=== PATIENT | female | born 1975 | race Asian ===

== ENCOUNTER 2023-02-17 17:32 | Inpatient (IN) | payer OTHER ==
[~2023-02-17] VITALS: Ht 167.6 cm; Wt 72.7 kg
[2023-02-17] MEDS ORDERED: LEVO100 PO (17:59)
[2023-02-17 21:06] LABS: BASOPHILS % (AUTO) 0.1 % (0.0-2.0); EOSINOPHILS % (AUTO) 0.2 % (1.0-6.0); HEMATOCRIT 43.1 % (36-46); HEMOGLOBIN 14.6 g/dL (12.0-16.0); LYMPHOCYTES # (AUTO) 0.8 K/uL (1.0-4.8); LYMPHOCYTES % (AUTO) 11.1 % (22.0-44.0); MEAN CORPUSCULAR HEMOGLOBIN 32.8 pg (26.0-34.0); MEAN CORPUSCULAR HGB CONC 33.9 G/dL (31.0-37.0); MEAN CORPUSCULAR VOLUME 97 fL (80-100); MONOCYTES # (AUTO) 0.4 K/uL (0.1-1.0); MONOCYTES % (AUTO) 4.6 % (2.0-9.0); NEUTROPHILS # (AUTO) 6.4 K/uL (1.8-7.7); PLATELET COUNT (AUTO) 205 K/uL (150-450); RED BLOOD CELL COUNT(AUTO) 4.45 MIL/uL (4.00-5.20); RED CELL DISTRIBUTION WIDTH 12.4 % (11.5-14.5)
[2023-02-17 21:16] LABS: APPEARANCE,URINE CLEAR (CLEAR); BILIRUBIN,URINE NEGATIVE (NEGATIVE); GLUCOSE, URINE (UA) NEGATIVE (NEGATIVE); KETONES,URINE 80-100 mg/dL (NEGATIVE); LEUKOCYTE ESTERASE ,URINE TRACE (NEGATIVE); NITRATE,URINE NEGATIVE (NEGATIVE); OCCULT BLOOD,URINE MODERATE (NEGATIVE); PH,URINE 5.5 (5.0-8.0); PROTEIN,URINE TRACE mg/dL (NEGATIVE); SPECIFIC GRAVITIY, URINE 1.023 (1.003-1.030); UROBILINOGEN,URINE <=1.0 mg/dL (<=1.0)
[2023-02-17 21:18] LABS: ANION GAP 11 mmol/L (8-16); CALCIUM, TOTAL 9.2 mg/dL (8.8-10.5); CARBON DIOXIDE 29 mmol/L (22-29); CHLORIDE 97 mmol/L (98-107); CREATININE 0.78 mg/dL (0.60-1.30); GLOMERULAR FILTR. RATE CALC > 60 mL/min (>60); GLUCOSE,RANDOM 110 mg/dL (70-110); POTASSIUM 3.6 mmol/L (3.5-5.1); SODIUM SERUM 137 mmol/L (136-145); UREA NITROGEN, BLOOD 7 mg/dL (7-18)
[2023-02-17 21:25] LABS: ALANINE AMINOTRANSFERASE 40 U/L (12-78); ALKALINE PHOSPHATASE 100 U/L (46-116); ASPARTATE AMINOTRANSFERASE 21 U/L (15-37); LIPASE 79 U/L (73-393); TOTAL PROTEIN, SERUM 8.1 g/dL (6.4-8.2)
[2023-02-17 21:29] LABS: BACTERIA,URINE None Seen /HPF (None Seen); RBC,URINE 0-2 /HPF (0-2); SQUAMOUS EPITHELIAL CELL,UR None Seen /LPF (None Seen); WBC,URINE 0-2 /HPF (0-5)
[2023-02-18] MEDS ORDERED: PHENOBARB/HYOSCY/ATROPINE/SCOP 5 ML UDCUP ELIXIR PO ONE
[2023-02-18] MEDS ORDERED: PIPERACILLIN/TAZO 3.375 GM/D5W 50 ML IV ONE (02:15)
[2023-02-18] MEDS ORDERED: MORPHINE SULFATE 2 MG/ML SYRINGE IVP PRN (03:15)
[2023-02-18] MEDS ORDERED: MORPHINE SULFATE 4 MG/ML SYRINGE IVP PRN ×2 (03:15→13:15)
[2023-02-18] MEDS ORDERED: ACETAMINOPHEN 325 MG TABLET PO PRN (03:15)
[2023-02-18] MEDS ORDERED: ONDANSETRON HCL 4 MG/2 ML VIAL IVP PRN (03:15)
[2023-02-18] MEDS: RINGERS SOLUTION,LACTATED 1,000 ML IV SCH ×2 (04:52→14:46)
[2023-02-18 06:08] LABS: PROTHROMBIN TIME 10.8 SEC (9.4-11.6)
[2023-02-18] MEDS: DOCUSATE SODIUM 100 MG CAPSULE PO SCH ×2 (09:29→20:11)
[2023-02-18] MEDS: PIPERACILLIN/TAZO 3.375 GM/D5W 50 ML IV SCH ×3 (09:30→21:41)
[2023-02-18] MEDS ORDERED: BUPIVACAINE 0.25%/EPI 1:200,000/PF 10 ML VIAL ONE ×2 (11:32)
[2023-02-18] MEDS ORDERED: SODIUM CL IRRIG SOLN BAG 3,000 ML IRRIG ONE (11:32)
[2023-02-18] MEDS ORDERED: RINGERS SOLUTION,LACTATED 1,000 ML IV ONE (11:43)
[2023-02-18] MEDS ORDERED: SUGAMMADEX SODIUM 200 MG/2 ML VIAL IVP ONE (12:22)
[2023-02-18] MEDS ORDERED: ACETAMINOPHEN 1000 MG/ISO-OSM 100 ML IV ONE (12:22)
[2023-02-18] MEDS ORDERED: MetroNIDAZOLE 500 MG/NACL 100 ML IV ONE (12:22)
[2023-02-18] MEDS ORDERED: FentaNYL CITRATE PF 100 MCG/2 ML VIAL IVP PRN (12:30)
[2023-02-18] MEDS ORDERED: HYDROmorphone HCL 2 MG/ML SYRINGE IVP PRN (12:30)
[2023-02-18] MEDS ORDERED: HYDROmorphone HCL 2 MG/ML SYRINGE IM PRN (13:15)
[2023-02-18] MEDS: FAMOTIDINE 20 MG TABLET PO SCH ×2 (13:15→20:11)
[2023-02-18] MEDS ORDERED: HYDROCODONE/ACETAMINOPHEN 5-325 MG TABLET PO PRN (13:15)
[2023-02-18 14:43] VITALS: BP 118/76
[2023-02-18] MEDS: IBUPROFEN 200 MG TABLET PO SCH ×2 (18:33→20:20)
[2023-02-18 19:53] VITALS: BP 117/69
[2023-02-18] MEDS: OXYGEN THERAPY IH SCH (20:21)
[2023-02-19] MEDS: RINGERS SOLUTION,LACTATED 1,000 ML IV SCH ×3 (03:31→23:07)
[2023-02-19] MEDS: PIPERACILLIN/TAZO 3.375 GM/D5W 50 ML IV SCH ×4 (03:31→20:33)
[2023-02-19 04:38] VITALS: BP 119/76
[2023-02-19] MEDS ORDERED: FentaNYL CITRATE PF 100 MCG/2 ML VIAL IVP ONE (06:02)
[2023-02-19] MEDS ORDERED: MIDAZOLAM HCL 2 MG/2 ML VIAL IVP ONE (06:02)
[2023-02-19] MEDS ORDERED: PROPOFOL 1% 20 ML VIAL IVP ONE (06:02)
[2023-02-19] MEDS ORDERED: ROCURONIUM BROMIDE 10 MG/ML 5 ML VIAL IVP ONE (06:02)
[2023-02-19] MEDS ORDERED: LIDOCAINE/PF 2% 5 ML VIAL IM ONE (06:02)
[2023-02-19] MEDS ORDERED: DEXAMETHASONE SOD PHOS 4 MG/ML VIAL IVP ONE (06:02)
[2023-02-19] MEDS ORDERED: ONDANSETRON HCL 4 MG/2 ML VIAL IVP ONE (06:02)
[2023-02-19 07:36] LABS: BASOPHILS % (AUTO) 0.2 % (0.0-2.0); EOSINOPHILS % (AUTO) 0 % (1.0-6.0); HEMATOCRIT 36.9 % (36-46); HEMOGLOBIN 12.7 g/dL (12.0-16.0); LYMPHOCYTES # (AUTO) 0.5 K/uL (1.0-4.8); LYMPHOCYTES % (AUTO) 7.6 % (22.0-44.0); MEAN CORPUSCULAR HEMOGLOBIN 33.3 pg (26.0-34.0); MEAN CORPUSCULAR HGB CONC 34.4 G/dL (31.0-37.0); MEAN CORPUSCULAR VOLUME 97 fL (80-100); MONOCYTES # (AUTO) 0.3 K/uL (0.1-1.0); MONOCYTES % (AUTO) 5.1 % (2.0-9.0); NEUTROPHILS # (AUTO) 5.5 K/uL (1.8-7.7); PLATELET COUNT (AUTO) 140 K/uL (150-450); RED CELL DISTRIBUTION WIDTH 12.6 % (11.5-14.5)
[2023-02-19 07:43] VITALS: BP 137/91
[2023-02-19 07:43] LABS: ANION GAP 6 mmol/L (8-16); CALCIUM, TOTAL 8.8 mg/dL (8.8-10.5); CARBON DIOXIDE 31 mmol/L (22-29); CHLORIDE 103 mmol/L (98-107); CREATININE 0.66 mg/dL (0.60-1.30); GLOMERULAR FILTR. RATE CALC > 60 mL/min (>60); GLUCOSE,RANDOM 115 mg/dL (70-110); POTASSIUM 3.7 mmol/L (3.5-5.1); SODIUM SERUM 140 mmol/L (136-145); UREA NITROGEN, BLOOD 11 mg/dL (7-18)
[2023-02-19] MEDS ORDERED: HEPARIN SODIUM,PORCINE 5,000 UNITS/ML VIAL SQ SCH (08:00)
[2023-02-19 08:20] LABS: NEUTROPHILS % (AUTO) 87.1 % (40.0-70.0)
[2023-02-19] MEDS: FAMOTIDINE 20 MG TABLET PO SCH ×2 (08:43→20:32)
[2023-02-19] MEDS: DOCUSATE SODIUM 100 MG CAPSULE PO SCH ×2 (08:43→20:32)
[2023-02-19] MEDS: IBUPROFEN 200 MG TABLET PO SCH ×3 (08:43→20:32)
[2023-02-19] MEDS: OXYGEN THERAPY IH SCH ×2 (08:45→20:00)
[2023-02-19] MEDS: BENZOCAINE/MENTHOL LOZENGE PO PRN (11:59)
[2023-02-19 12:32] LABS: THYROID STIMULATING HORMONE 0.64 uIU/mL (0.36-3.74)
[2023-02-19] MEDS ORDERED: BENA10TA77 PO (13:38)
[2023-02-19 15:11] VITALS: BP 124/80
[2023-02-19 20:43] VITALS: BP 127/85
[2023-02-20] MEDS: PIPERACILLIN/TAZO 3.375 GM/D5W 50 ML IV SCH ×3 (03:58→15:34)
[2023-02-20 04:49] VITALS: BP 137/84
[2023-02-20 06:56] LABS: BASOPHILS % (AUTO) 0.3 % (0.0-2.0); HEMATOCRIT 36.6 % (36-46); HEMOGLOBIN 12.3 g/dL (12.0-16.0); LYMPHOCYTES % (AUTO) 24.6 % (22.0-44.0); MEAN CORPUSCULAR HEMOGLOBIN 32.6 pg (26.0-34.0); MEAN CORPUSCULAR HGB CONC 33.5 G/dL (31.0-37.0); MEAN CORPUSCULAR VOLUME 98 fL (80-100); MONOCYTES # (AUTO) 0.3 K/uL (0.1-1.0); MONOCYTES % (AUTO) 7.2 % (2.0-9.0); NEUTROPHILS # (AUTO) 2.7 K/uL (1.8-7.7); NEUTROPHILS % (AUTO) 65.9 % (40.0-70.0); PLATELET COUNT (AUTO) 159 K/uL (150-450); RED BLOOD CELL COUNT(AUTO) 3.76 MIL/uL (4.00-5.20); RED CELL DISTRIBUTION WIDTH 12.6 % (11.5-14.5)
[2023-02-20 07:15] LABS: ANION GAP 7 mmol/L (8-16); CALCIUM, TOTAL 8.6 mg/dL (8.8-10.5); CARBON DIOXIDE 30 mmol/L (22-29); CHLORIDE 105 mmol/L (98-107); CREATININE 0.81 mg/dL (0.60-1.30); GLOMERULAR FILTR. RATE CALC > 60 mL/min (>60); GLUCOSE,RANDOM 99 mg/dL (70-110); POTASSIUM 3.5 mmol/L (3.5-5.1); SODIUM SERUM 142 mmol/L (136-145); UREA NITROGEN, BLOOD 10 mg/dL (7-18)
[2023-02-20] MEDS: OXYGEN THERAPY IH SCH (08:00)
[2023-02-20 08:14] VITALS: BP 138/96
[2023-02-20] MEDS: BENZOCAINE/MENTHOL LOZENGE PO PRN (08:25)
[2023-02-20] MEDS: DOCUSATE SODIUM 100 MG CAPSULE PO SCH (08:26)
[2023-02-20] MEDS: IBUPROFEN 200 MG TABLET PO SCH ×2 (08:26→15:34)
[2023-02-20] MEDS: FAMOTIDINE 20 MG TABLET PO SCH (08:26)
[2023-02-20] MEDS ORDERED: BENAZEPRIL HCL 10 MG TABLET PO SCH (09:00)
[2023-02-20] MEDS ORDERED: AMOX1TAB16 PO (10:23)
[2023-02-20] MEDS ORDERED: BISACODYL 10 MG RECTAL RECTAL SUPPOSITORY PR ONE (10:30)
[2023-02-20] MEDS: RINGERS SOLUTION,LACTATED 1,000 ML IV SCH (10:30)
[2023-02-20 15:55] VITALS: BP 124/79
== END 2023-02-20 17:00 | disposition home or self-care (01) | DRG 234 ==
LOC: EMS 17:33 → 6S 02-18 11:33
PROVIDERS: ADMIT Internal Medicine; ATTEND Internal Medicine
PROC: 0WJG4ZZ Inspection of Peritoneal Cavity, Percutaneous Endoscopic Approach (ICD-10-PCS; 2023-02-18)
PROC: 0DTJ0ZZ Resection of Appendix, Open Approach (ICD-10-PCS; principal; 2023-02-18 12:00)
DX: K35.30 Acute appendicitis with localized peritonitis, without perforation or gangrene (principal); B35.9 Dermatophytosis, unspecified; E03.9 Hypothyroidism, unspecified; Z98.891 History of uterine scar from previous surgery; Z20.822 Contact with and (suspected) exposure to COVID-19; I10 Essential (primary) hypertension; Z53.31 Laparoscopic surgical procedure converted to open procedure
CPT/HCPCS: 74176; 80048; 80053; 81001; 83690; 84443; 84484; 85025; 85610; 87081; 88304; 99285; G0238; G0378; J0131; J1100; J2250; J2405; J2543; J2704; J3010; J3490; J7120; Q9967